=== PATIENT | male | born 1940 | race Caucasian/White ===

== ENCOUNTER 2016-10-30 20:52 | Observation (INO) | payer MEDICARE, SELFPAY ==
[~2016-10-30] VITALS: Ht 190.5 cm; Wt 104.0 kg
[~2016-10-30 20:52] MED LIST: ALDACTONE25 MG PO; ASPIRIN325 MG PO; CIPRO500 MG PO; CLINDAMYCIN HC300 MG PO; COMBIVENT RESPIM4 GM INH; FLOMAX0.4 MG PO; LEVAQUIN500 MG PO; METFORMIN HCL500 M1 PO; METOPROLOL TART25 MG PO; NITROQUICK0.4 MG SL; NORVASC5 MG PO; OMEPRAZOLE40 MG PO; PLAVIX75 MG PO; PRAVACHOL40 MG PO; PREDNISONE 10MG10 MG PO; RESTORIL30 MG PO; TOPROL XL25 MG PO; ZANAFLEX4 M1 PO; ZESTRIL20 MG PO; ZETIA10 MG PO
[2016-10-30 21:21] LABS: BASO % 0.6 % (0.2-1.2); EOS # 0.3 10_X3_uL (0.0-0.5); EOS % 3.9 % (0.8-7.0); GRAN # 2.6 10_X3_uL (1.8-5.4); GRAN % 38.6 % (34.0-67.9); HEMATOCRIT 41.4 % (40-51); HEMOGLOBIN 14.6 g/dL (13.7-17.5); LYMPH # 3.1 10_X3_uL (1.3-3.6); LYMPH % 46.5 % (21.8-53.1); MEAN CORPUSCULAR HEMOGLOBIN 32.7 pg (27.0-33.0); MEAN CORPUSCULAR HGB CONC 35.3 g/dL (32.0-36.0); MEAN CORPUSCULAR VOLUME 92.8 fL (79-92); MEAN PLATELET VOLUME 8.5 fl (7.5-11.5); MONO # 0.7 10_X3_uL (0.3-0.8); MONO % 10.4 % (5.3-12.2); PLATELET COUNT 233 x10_3/uL (163-337); RED BLOOD COUNT 4.46 x10_6/uL (4.6-6.1); RED CELL DISTRIBUTION WIDTH 13.1 % (11.6-14.4); WHITE BLOOD COUNT 6.7 x10_3/uL (4.2-9.1)
[2016-10-30 21:39] LABS: ALBUMIN 4.1 gm/dL (3.4-5.0); ALKALINE PHOSPHATASE 104 U/L (50-136); ALT/SGPT 10 U/L (7.53-40.17); AST/SGOT 16 U/L (6.66-35.34); BILIRUBIN,TOTAL 0.39 mg/dL (0.0-1.0); BLOOD UREA NITROGEN 31 mg/dL (7-18); CARBON DIOXIDE 23 mmol/L (21-32); CREATININE 1.1 mg/dL (0.6-1.3); GLUCOSE,RANDOM 68 mg/dL (70-99); POTASSIUM 3.6 mmol/L (3.5-5.1); SODIUM 139 mmol/L (136-145)
[2016-10-31 07:37] LABS: BASO # 0.1 10_X3_uL (0.0-0.1); BASO % 0.8 % (0.2-1.2); EOS # 0.2 10_X3_uL (0.0-0.5); EOS % 2.9 % (0.8-7.0); GRAN # 3.8 10_X3_uL (1.8-5.4); GRAN % 57.8 % (34.0-67.9); HEMATOCRIT 44.7 % (40-51); HEMOGLOBIN 15.9 g/dL (13.7-17.5); LYMPH % 30.5 % (21.8-53.1); MEAN CORPUSCULAR HEMOGLOBIN 32.4 pg (27.0-33.0); MEAN CORPUSCULAR HGB CONC 35.6 g/dL (32.0-36.0); MEAN CORPUSCULAR VOLUME 91.2 fL (79-92); MEAN PLATELET VOLUME 8.7 fl (7.5-11.5); MONO # 0.5 10_X3_uL (0.3-0.8); PLATELET COUNT 241 x10_3/uL (163-337); RED CELL DISTRIBUTION WIDTH 13.1 % (11.6-14.4); WHITE BLOOD COUNT 6.6 x10_3/uL (4.2-9.1)
[2016-10-31 07:50] LABS: AHDL CHOLESTEROL 57 mg/dL (>40); CALCIUM 9.1 mg/dL (8.7-10.7); CARBON DIOXIDE 24 mmol/L (21-32); CHOLESTEROL 182 mg/dL (0-200); CREATININE 0.8 mg/dL (0.6-1.3); GLUCOSE,RANDOM 116 mg/dL (70-99); LDL CHOLESTEROL 113 mg/dL (0-99); POTASSIUM 3.8 mmol/L (3.5-5.1); SODIUM 139 mmol/L (136-145); TRIGLYCERIDES 80 mg/dL (30-200)
[2016-10-31 07:56] LABS: BLOOD UREA NITROGEN 21 mg/dL (7-18)
== END 2016-11-01 12:39 | disposition home or self-care (01) ==
LOC: ER 20:52 → MS 22:07 → UNDODEPER 11-01 23:04
PROVIDERS: General Practice; ADMIT Family Medicine
DX: I11.0 Hypertensive heart disease with heart failure (principal); R00.1 Bradycardia, unspecified; R53.1 Weakness; I70.1 Atherosclerosis of renal artery; M62.50 Muscle wasting and atrophy, not elsewhere classified, unspecified site; J44.9 Chronic obstructive pulmonary disease, unspecified; M79.1 Myalgia; R42 Dizziness and giddiness; I25.10 Atherosclerotic heart disease of native coronary artery without angina pectoris; I50.9 Heart failure, unspecified; Z79.82 Long term (current) use of aspirin; Z79.899 Other long term (current) drug therapy; Z95.5 Presence of coronary angioplasty implant and graft; Z87.891 Personal history of nicotine dependence
CPT/HCPCS: 36415; 71010; 74175; 80048; 80053; 80061; 82962; 83036; 83880; 85025; 93005; 93306; 99070; 99284; 99284-25; G0378

== ENCOUNTER 2017-01-17 18:47 | Observation (INO) | payer MEDICARE, SELFPAY ==
[~2017-01-17] VITALS: Ht 188 cm; Wt 103.0 kg
[2017-01-17 19:26] LABS: BASO % 0.7 % (0.2-1.2); EOS # 0.3 10_X3_uL (0.0-0.5); EOS % 5.5 % (0.8-7.0); GRAN # 2.5 10_X3_uL (1.8-5.4); GRAN % 45.4 % (34.0-67.9); HEMATOCRIT 38.8 % (40-51); HEMOGLOBIN 13.2 g/dL (13.7-17.5); LYMPH % 37.7 % (21.8-53.1); MEAN CORPUSCULAR HEMOGLOBIN 32.8 pg (27.0-33.0); MEAN CORPUSCULAR VOLUME 96.5 fL (79-92); MONO # 0.6 10_X3_uL (0.3-0.8); MONO % 10.7 % (5.3-12.2); PLATELET COUNT 193 x10_3/uL (163-337); RED BLOOD COUNT 4.02 x10_6/uL (4.6-6.1); RED CELL DISTRIBUTION WIDTH 13.5 % (11.6-14.4); WHITE BLOOD COUNT 5.4 x10_3/uL (4.2-9.1)
[2017-01-17 19:40] LABS: ALBUMIN 3.8 gm/dL (3.4-5.0); ALKALINE PHOSPHATASE 84 U/L (50-136); ALT/SGPT 10 U/L (7.53-40.17); AST/SGOT 16 U/L (6.66-35.34); BILIRUBIN,TOTAL 0.41 mg/dL (0.0-1.0); CALCIUM 8.8 mg/dL (8.7-10.7); CARBON DIOXIDE 27 mmol/L (21-32); CREATINE KINASE 58 U/L (35-232); CREATININE 1.2 mg/dL (0.6-1.3); GLUCOSE,RANDOM 161 mg/dL (70-99); POTASSIUM 4.3 mmol/L (3.5-5.1); SODIUM 138 mmol/L (136-145); TOTAL PROTEIN 6.2 gm/dL (6.4-8.2)
[2017-01-17 19:45] LABS: BLOOD UREA NITROGEN 20 mg/dL (7-18)
[2017-01-18 01:07] LABS: CKMB 1.3 ng/ml (0.0-5.0)
[2017-01-18 01:19] LABS: TROP-I < 0.30 NG/ML (0.00-0.30)
[2017-01-18 07:18] LABS: BASO % 0.6 % (0.2-1.2); EOS # 0.3 10_X3_uL (0.0-0.5); EOS % 4.3 % (0.8-7.0); GRAN # 3.5 10_X3_uL (1.8-5.4); GRAN % 54.8 % (34.0-67.9); HEMATOCRIT 44.4 % (40-51); HEMOGLOBIN 15.3 g/dL (13.7-17.5); LYMPH % 30.7 % (21.8-53.1); MEAN CORPUSCULAR HEMOGLOBIN 32.7 pg (27.0-33.0); MEAN CORPUSCULAR HGB CONC 34.5 g/dL (32.0-36.0); MEAN CORPUSCULAR VOLUME 94.9 fL (79-92); MEAN PLATELET VOLUME 8.6 fl (7.5-11.5); MONO # 0.6 10_X3_uL (0.3-0.8); MONO % 9.6 % (5.3-12.2); PLATELET COUNT 214 x10_3/uL (163-337); RED BLOOD COUNT 4.68 x10_6/uL (4.6-6.1); RED CELL DISTRIBUTION WIDTH 13.6 % (11.6-14.4); WHITE BLOOD COUNT 6.4 x10_3/uL (4.2-9.1)
[2017-01-18 07:32] LABS: CKMB 1.6 ng/ml (0.0-5.0)
[2017-01-18 07:33] LABS: TROP-I < 0.30 NG/ML (0.00-0.30)
[2017-01-18 07:36] LABS: ALKALINE PHOSPHATASE 94 U/L (50-136); ALT/SGPT 11 U/L (7.53-40.17); AST/SGOT 19 U/L (6.66-35.34); BILIRUBIN,TOTAL 0.68 mg/dL (0.0-1.0); BLOOD UREA NITROGEN 14 mg/dL (7-18); CALCIUM 9.2 mg/dL (8.7-10.7); CARBON DIOXIDE 25 mmol/L (21-32); CREATININE 0.8 mg/dL (0.6-1.3); GLUCOSE,RANDOM 116 mg/dL (70-99); POTASSIUM 4.4 mmol/L (3.5-5.1); SODIUM 138 mmol/L (136-145); TOTAL PROTEIN 7.2 gm/dL (6.4-8.2)
[2017-01-18 12:52] LABS: CKMB 1.4 ng/ml (0.0-5.0)
[2017-01-18 13:00] LABS: TROP-I < 0.30 NG/ML (0.00-0.30)
== END 2017-01-18 19:30 | disposition short-term general hospital (02) ==
LOC: ER 18:47 → MS 22:30
PROVIDERS: Internal Medicine; ADMIT Family Medicine
DX: R55 Syncope and collapse (principal); R00.1 Bradycardia, unspecified; R91.8 Other nonspecific abnormal finding of lung field; I25.10 Atherosclerotic heart disease of native coronary artery without angina pectoris; I10 Essential (primary) hypertension; E11.9 Type 2 diabetes mellitus without complications; R42 Dizziness and giddiness; S69.91XA Unspecified injury of right wrist, hand and finger(s), initial encounter; W07.XXXA Fall from chair, initial encounter; Y92.007 Garden or yard of unspecified non-institutional (private) residence as the place of occurrence of the external cause; Z95.1 Presence of aortocoronary bypass graft; Z80.9 Family history of malignant neoplasm, unspecified; Z83.6 Family history of other diseases of the respiratory system; Z79.02 Long term (current) use of antithrombotics/antiplatelets; Z79.82 Long term (current) use of aspirin; Z79.84 Long term (current) use of oral hypoglycemic drugs; Z79.899 Other long term (current) drug therapy
CPT/HCPCS: 36415; 71010; 71260; 73130; 80053; 80061; 82550; 82553; 82962; 83036; 85025; 85379; 93005; 93041; 96374; 99070; 99284; 99285-25; G0378; J7040; Q9967